=== PATIENT | male | born 1985 | race Caucasian/White ===

== ENCOUNTER 2016-05-22 12:10 | Emergency (ER) | payer OTHER ==
[~2016-05-22] VITALS: Ht 187.9 cm; Wt 74.8 kg
[~2016-05-22 12:10] MED LIST: AMOXICILLIN500 MG PO; AUGMENTIN 875875 MG PO; CATAFLAM50 MG PO; CLARITIN10 MG PO; FLEXERIL10 MG PO; HUMALOG 751 UNIT/0.0 SC; HYDROCODONE BIT1 T11 PO; IMODIUM A-D2 M2 PO; LANTUS100 U/ML SC; LOMOTIL 0.025 M1 TA1 PO; MOTRIN800 MG PO; Motrin,Rufen800 MG PO; NORCO 5-325 TA1 EACH PO; NORFLEX100 MG PO; NOVOLIN R100 U/ML SC; PEN-VK500 MG PO; PERCOCET 325 MG1 TA2 PO; PHENERGAN W/ DE30 ML PO; PREDNICOT10 MG PO; PREDNICOT20 MG PO; PREDNISONE10 MG PO; PROAIR HFA0.09 MG/AC INH; PROAIR HFA8.5 GM IH; ROBITUSSIN AC 110 ML PO; ROBITUSSIN DM 105 ML PO; TESSALON PERLE200 MG PO; VENTOLIN H0.09 MG/AC INH; VIBRAMYCIN100 MG PO; VICODIN 5/500 505 MG PO; ZITHROMAX Z PA250 MG PO; ZOFRAN ODT4 MG SL; ZOFRAN4 MG PO; ZYRTEC10 MG PO
[2016-05-22] MEDS ORDERED: IBU800 M1 PO (13:58)
== END 2016-05-22 14:00 | disposition home or self-care (01) ==
LOC: ED 12:10
DX: S83.91XA Sprain of unspecified site of right knee, initial encounter (principal); F17.200 Nicotine dependence, unspecified, uncomplicated; Z79.4 Long term (current) use of insulin; X58.XXXA Exposure to other specified factors, initial encounter; Y93.89 Activity, other specified; Y92.830 Public park as the place of occurrence of the external cause; Y99.9 Unspecified external cause status

== ENCOUNTER 2016-06-07 12:08 | Emergency (ER) | payer OTHER ==
[~2016-06-07] VITALS: Ht 187.9 cm; Wt 74.8 kg
--- NOTE | ~2016-06-07 | EKG ---
[place], [place] ELECTROCARDIOGRAM REPORT NAME: RENETTA HENNING UNIT #: [id number] ROOM: DOCTOR: BEBE WARNER MD BIRTHDATE: [birth year] DOS: 06/07/2016 TIME: 1233 hours. FINDINGS: 1. Sinus rhythm at a rate of 92. 2. Early repolarization changes. 3. Normal electrocardiogram. BEBE WARNER MD CM:EKGRPT:ELECTROCARDIOGRAM REPORT [id number] BEBE WARNER MD
[~2016-06-07 12:08] MED LIST changes: +IBU800 M1 PO
[2016-06-07 12:52] LABS: HEMOGLOBIN 15.3 g/dl (14.0-18.0); MEAN CELL VOLUME 89.2 fl (80.0-94.0); MEAN CORPUSCULAR HGB CONC 34.8 g/dl (33.0-37.0); PLATELET COUNT AUTOMATED 218 10*3/uL (130-400); RED BLOOD COUNT 4.93 10*6/uL (4.50-5.90); RED CELL DISTRI WIDTH 12.9 % (0-14.5); WHITE BLOOD COUNT 17.9 10*3/uL (4.8-10.8)
[2016-06-07 13:11] LABS: ALBUMIN 3.7 gm/dl (3.1-4.5); BUN 13 mg/dl (7-24); CARBON DIOXIDE 21 mmol/L (21-32); CHLORIDE 103 mmol/L (98-107); EST GLOM FILT AFRICAN AMERICAN > 60 ml/min; GLUCOSE 385 mg/dL (65-99); LYMPHOCYTE # 0.4 10*3/uL (1.3-4.4); MONOCYTE # 0.2 10*3/uL (0.1-1.0); NEUTROPHIL # 17.4 10*3/uL (2.3-7.9); NEUTROPHILS 97 % (47-73); PLATELET SUFFICIENCY NORMAL (NORMAL); POTASSIUM 4.3 mmol/L (3.5-5.1); SGOT/AST 13 IU/L (3-35); SGPT/ALT 20 U/L (12-78); SODIUM 137 mmol/L (136-145); TOTAL CELLS COUNTED 100 #CELLS
[2016-06-07 13:15] LABS: ALKALINE PHOSPHATASE 141 U/L (45-117); BILIRUBIN, TOTAL 0.6 mg/dl (0.2-1.0)
[2016-06-07 13:19] LABS: TROPONIN I < 0.015 ng/ml (<0.045)
== END 2016-06-07 15:20 | disposition left against medical advice (07) ==
LOC: ED 12:08
PROVIDERS: Emergency Medicine
DX: R10.13 Epigastric pain (principal); E10.9 Type 1 diabetes mellitus without complications; Z90.89 Acquired absence of other organs; Z79.4 Long term (current) use of insulin

== ENCOUNTER → 2016-06-21 | Outpatient (CLI) | payer OTHER | END | disposition home or self-care (01) | LOC: RAD 14:30 | DX: S62.306D Unspecified fracture of fifth metacarpal bone, right hand, subsequent encounter for fracture with routine healing (principal); M25.841 Other specified joint disorders, right hand; X58.XXXD Exposure to other specified factors, subsequent encounter ==

== ENCOUNTER 2016-07-22 20:37 | Emergency (ER) | payer OTHER ==
[~2016-07-22] VITALS: Wt 74.8 kg
[2016-07-22] MEDS ORDERED: HYDROCODONE BIT1 T11 PO (21:36)
[2016-07-22] MEDS ORDERED: Motrin,Rufen800 MG PO (21:36)
== END 2016-07-22 21:30 | disposition home or self-care (01) ==
LOC: ED 20:37
DX: S62.91XA Unspecified fracture of right hand, initial encounter for closed fracture (principal); F17.200 Nicotine dependence, unspecified, uncomplicated; Z79.4 Long term (current) use of insulin; W22.03XA Walked into furniture, initial encounter; Y93.89 Activity, other specified; Y92.9 Unspecified place or not applicable; Y99.9 Unspecified external cause status

== ENCOUNTER 2016-11-01 20:30 | Emergency (ER) | payer OTHER ==
[~2016-11-01] VITALS: Ht 187.9 cm; Wt 72.6 kg
[2016-11-01] MEDS ORDERED: VIBRAMYCIN100 MG PO (20:57)
[2016-11-01] MEDS ORDERED: ATARAX,VISTARIL50 MG PO (20:57)
== END 2016-11-01 22:15 | disposition home or self-care (01) ==
LOC: ED 20:30
DX: S50.861A Insect bite (nonvenomous) of right forearm, initial encounter (principal); L08.9 Local infection of the skin and subcutaneous tissue, unspecified; F17.200 Nicotine dependence, unspecified, uncomplicated; Z90.89 Acquired absence of other organs; W57.XXXA Bitten or stung by nonvenomous insect and other nonvenomous arthropods, initial encounter; Y93.89 Activity, other specified; Y92.89 Other specified places as the place of occurrence of the external cause; Y99.9 Unspecified external cause status

== ENCOUNTER 2017-06-08 11:51 | Emergency (ER) | payer OTHER ==
[~2017-06-08] VITALS: Ht 187.9 cm; Wt 72.6 kg
[~2017-06-08 11:51] MED LIST changes: +ATARAX,VISTARIL50 MG PO
[2017-06-08] MEDS ORDERED: KEFLEX500 M1 PO (11:58)
[2017-06-08] MEDS ORDERED: SEPTDS PO (11:58)
[2017-06-08] MEDS ORDERED: Bactroban Oint22 GM T (11:58)
== END 2017-06-08 12:15 | disposition home or self-care (01) ==
LOC: ED 11:51
DX: L02.511 Cutaneous abscess of right hand (principal); F17.200 Nicotine dependence, unspecified, uncomplicated; E11.9 Type 2 diabetes mellitus without complications; Z90.89 Acquired absence of other organs; Z79.899 Other long term (current) drug therapy; Z79.4 Long term (current) use of insulin

== ENCOUNTER 2018-01-01 11:55 | Emergency (ER) | payer OTHER ==
[~2018-01-01] VITALS: Ht 589.2 cm; Wt 72.6 kg
--- NOTE | ~2018-01-01 | EKG ---
[place], [place] ELECTROCARDIOGRAM REPORT NAME: RENETTA HENNING UNIT #: [id number] ROOM: DOCTOR: FLACA DRAFT REPORT BIRTHDATE: [birth year] [facility] Test Date: 2018-01-01 Test Time: 11:59:38 Pat Name: RENETTA HENNING Department: ER Room: Gender: Voice Writing Reporter: : 1985 Requested By: KATHERINE DRAKE Order Number: [id number] Reading MD: Cale Back MD Measurements Intervals [place] Rate: 133 P: 70 WV: 107 QRS: 64 QRSD: 92 T: 48 QT: 334 QTc: 497 Interpretive Statements Sinus tachycardia Prolonged QT interval Artifact in lead(s) II,III,aVF Electronically Signed On 01-03-2018 6:31:13 PST by Cale Back MD CM:EKGRPT:ELECTROCARDIOGRAM REPORT [id number] KATHERINE MARTÍNEZ DRAFT REPORT KATHERINE DRAKE DO
[~2018-01-01 11:55] MED LIST changes: +Bactroban Oint22 GM T; +KEFLEX500 M1 PO; +SEPTDS PO
[2018-01-01 12:17] LABS: BASO # 0.1 10*3/uL (0.0-0.1); BASO % 0.4 % (0.0-1.0); EOS % 0.2 % (1.0-4.0); HEMOGLOBIN 13.9 g/dl (14.0-18.0); LYMPH # 1.8 10*3/uL (1.3-4.4); LYMPH % 9.4 % (27.0-41.0); MEAN CELL VOLUME 89.5 fl (80.0-94.0); MEAN CORPUSCULAR HGB 31.1 pg (27.0-31.0); MEAN CORPUSCULAR HGB CONC 34.8 g/dl (33.0-37.0); MEAN PLATELET VOLUME 10.7 fl (9.6-12.3); MONO % 5.2 % (3.0-9.0); NEUT # 16.2 10*3/uL (2.3-7.9); NEUT % 84.4 % (47.0-73.0); PLATELET COUNT AUTOMATED 287 10*3/uL (130-400); RED BLOOD COUNT 4.47 10*6/uL (4.50-5.90); RED CELL DISTRI WIDTH 12.3 % (0-14.5); WHITE BLOOD COUNT 19.2 10*3/uL (4.8-10.8)
[2018-01-01 12:38] LABS: ALBUMIN 3.8 gm/dl (3.1-4.5); ALKALINE PHOSPHATASE 132 U/L (45-117); BUN 14 mg/dl (7-24); CHLORIDE 103 mmol/L (98-107); CREATININE 1.19 mg/dL (0.70-1.30); LIPASE 51 U/L (73-393); POTASSIUM 3.8 mmol/L (3.5-5.1); SGOT/AST 50 IU/L (3-35); SGPT/ALT 41 U/L (12-78); SODIUM 137 mmol/L (136-145); TOTAL PROTEIN 7.3 gm/dL (6.4-8.2)
[2018-01-01 12:40] LABS: TROPONIN I < 0.015 ng/ml (<0.045)
== END 2018-01-01 13:30 | disposition short-term general hospital (02) ==
LOC: ED 11:55
PROVIDERS: Emergency Medicine
DX: S21.112A Laceration without foreign body of left front wall of thorax without penetration into thoracic cavity, initial encounter (principal); S31.119A Laceration without foreign body of abdominal wall, unspecified quadrant without penetration into peritoneal cavity, initial encounter; S27.0XXA Traumatic pneumothorax, initial encounter; J96.00 Acute respiratory failure, unspecified whether with hypoxia or hypercapnia; Z79.2 Long term (current) use of antibiotics; X78.1XXA Intentional self-harm by knife, initial encounter; Y93.89 Activity, other specified; Y92.89 Other specified places as the place of occurrence of the external cause; Y99.8 Other external cause status

== ENCOUNTER 2018-08-16 08:46 | Inpatient (IN) | payer OTHER ==
[~2018-08-16] VITALS: Ht 187.9 cm; Wt 71.0 kg
[2018-08-16] VITALS (7 sets, daily range): BP systolic 106–171; BP diastolic 60–90
--- NOTE | ~2018-08-16 | EKG ---
[place], [place] ELECTROCARDIOGRAM REPORT NAME: RENETTA HENNING UNIT #: [id number] ROOM: [facility] DOCTOR: FLACA DRAFT REPORT BIRTHDATE: [birth year] [facility] Test Date: 2018-08-16 Test Time: 09:21:01 Pat Name: RENETTA HENNING Department: Room: [facility] Gender: M Sexologist: : 1985 Requested By: MADDIE ZUNIGA Order Number: [id number] Reading MD: Aletha Oconnor MD Measurements Intervals [place] Rate: 116 P: 74 DC: 125 QRS: 59 QRSD: 105 T: 43 QT: 344 QTc: 478 Interpretive Statements Sinus tachycardia Right atrial enlargement Borderline prolonged QT interval Compared to ECG 01/01/2018 11:59:38 Atrial abnormality now present Electronically Signed On 08-16-2018 9:13:17 PDT by Aletha Oconnor MD CM:EKGRPT:ELECTROCARDIOGRAM REPORT MADDIE THAYER DRAFT REPORT MADDIE ZUNIGA MD
--- NOTE | 2018-08-16 08:58 | NUR ---
PT WITH HX DKA ARRIVES TACHYPNEIC, TACHYCARDIC AND NAUSEATED AFTER INDULGING IN METHAMPHETAMINE AND OTHER DRUG ABUSES YESTERDAY. HE IS ALERT AND ORIENTED.
--- NOTE | 2018-08-16 09:10 | NUR ---
PT DENIES NAUSEA OR ANY OTHER COMPLAINTS EXCEPT RAPID BREATHING AND DRY MOUTH. WATER PROVIDED AND HAS NOT VOMITED IT.
[2018-08-16 09:19] LABS: HEMATOCRIT 52.2 % (42.0-52.0); HEMOGLOBIN 16.7 g/dl (14.0-18.0); MEAN CELL VOLUME 93.5 fl (80.0-94.0); MEAN CORPUSCULAR HGB 29.9 pg (27.0-31.0); MEAN PLATELET VOLUME 11.3 fl (9.6-12.3); PLATELET COUNT AUTOMATED 403 10*3/uL (130-400); RED BLOOD COUNT 5.58 10*6/uL (4.50-5.90); RED CELL DISTRI WIDTH 12.7 % (0-14.5); WHITE BLOOD COUNT 29.5 10*3/uL (4.8-10.8)
[2018-08-16 09:35] LABS: ALBUMIN 4.4 gm/dl (3.1-4.5); ALKALINE PHOSPHATASE 226 U/L (45-117); BUN 32 mg/dl (7-24); CHLORIDE 92 mmol/L (98-107); CREATININE 2.07 mg/dL (0.70-1.30); LIPASE 22 U/L (73-393); SGOT/AST 38 IU/L (3-35); SGPT/ALT 39 U/L (12-78); SODIUM 133 mmol/L (136-145); TOTAL PROTEIN 8.7 gm/dL (6.4-8.2)
[2018-08-16 09:42] LABS: ETHYL ALCOHOL < 3.0 mg/dl (<3); TROPONIN I < 0.015 ng/ml (<0.045)
--- NOTE | 2018-08-16 09:44 | NUR ---
PT UNABLE TO PROVIDE URINE SPECIMENT AT THIS TIME.
[2018-08-16 09:49] LABS: PLATELET SUFFICIENCY HIGH (NORMAL); TOTAL CELLS COUNTED 100 #CELLS; VACUOLATION OF NEUTROPHILS SLIGHT
[2018-08-16 09:50] LABS: POTASSIUM 6.3 mmol/L (3.5-5.1)
[2018-08-16 09:54] LABS: ACT PARTIAL THROMBO TIME 24.4 SECONDS (20.0-32.1); INTERNATIONAL NORM RATIO 0.9 (2.0-3.5)
--- NOTE | 2018-08-16 09:55 | NUR ---
RESP DOING ABG, UNABLE TO TRANSPORT TO ICU # AT THIS TIME.
--- NOTE | 2018-08-16 10:07 | NUR ---
TRANSPORT TO ICU #3
--- NOTE | 2018-08-16 10:15 | NUR ---
A 32yr old male, admitted to ICCU, under the services of NAYE Morrow DO with a diagnosis of DKA. Chief complaint is vomiting at home, rapid breathing. Patient arrived via stretcher from ER. Monitor applied. Initial assessment completed. Vital signs taken and recorded. See assessment for past medical history, medications and allergies. Patient and/or family oriented to unit. [facility] ICCU visitation policy reviewed. Clothing/patient valuable form completed. IV fluids wide open x 2 liters at this time. Kussmaul breathing. Tachycardic. Nausea and dry heaves on admission. SARIKA LOBATO
[2018-08-16 10:18] LABS: ABG HCO3 2.5 mmol/l (22-26); ABG O2 SATURATION 97.9 % (95-97)
--- NOTE | 2018-08-16 10:20 | NUR ---
DR. TOBAR NOTIFIED OF CRITICAL LAB RESULTS AND ABG VALUES. ORDERS RECEIVED.
[2018-08-16 10:24] LABS: ABG BASE EXCESS -29.3 mmol/L (-2.0-2.0)
[2018-08-16 10:26] LABS: ARTERIAL BLOOD GAS PCO2 9.3 mmHg (35-45); ARTERIAL BLOOD GAS PH 7.052 (7.35-7.45)
--- NOTE | 2018-08-16 10:28 | NUR ---
Dr Paiz notified of critical pH of 7.052, pCO2 9.3.
--- NOTE | 2018-08-16 11:00 | NUR ---
INSULIN GTT INITIATED AT 7 UNITS/HR.
--- NOTE | 2018-08-16 11:50 | NUR ---
DR. NORRIS IN TO SEE PATIENT AND DISCUSS PLAN OF CARE, ORDERS RECEIVED.
[2018-08-16 12:07] LABS: URINE AMPHETAMINES > 1000 (1000ng/ml); URINE BARBITURATES < 200 (200ng/ml); URINE BENZODIAZEPINES < 200 (200ng/ml); URINE CANNABINOIDS (THC) > 50 (50ng/ml); URINE COCAINE < 300 (300ng/ml); URINE METHADONE < 300 (300ng/ml); URINE OPIATES < 300 (300ng/ml)
[2018-08-16 12:13] LABS: URINE PHENCYCLIDINE < 25 (25ng/ml)
[2018-08-16 14:06] LABS: BUN 29 mg/dl (7-24); CHLORIDE 103 mmol/L (98-107); CREATININE 1.42 mg/dL (0.70-1.30); SODIUM 136 mmol/L (136-145)
[2018-08-16 14:07] LABS: POTASSIUM 5.2 mmol/L (3.5-5.1)
--- NOTE | 2018-08-16 14:20 | NUR ---
DR. TOBAR NOTIFIED OF CRITICAL CO2 AND OF UPDATED LABS. ORDERS RECEIVED.
--- NOTE | 2018-08-16 17:11 | NUR ---
PATIENT TITRATED TO 6 UNIT PER INSULIN DRIP PROTOCOL. FLUIDS SWITCHED FROM NS TO D5W 1/2 NS W/20KCL.
[2018-08-16 18:29] LABS: BUN 24 mg/dl (7-24); CHLORIDE 109 mmol/L (98-107); CREATININE 1.37 mg/dL (0.70-1.30); POTASSIUM 4.7 mmol/L (3.5-5.1); SODIUM 140 mmol/L (136-145)
--- NOTE | 2018-08-16 18:38 | NUR ---
DR. TOBAR UPDATED ON BMP RESULTS. ORDERS RECEIVED.
--- NOTE | 2018-08-16 20:10 | NUR ---
PATIENT RESTING COMFORTABLY IN HIS BED AT THIS TIME. PATIENT IS HARD TO AROUSE. OPENS EYES WITH TACTILE STIMULI AND IMMEDIATELY CLOSES THEM AGAIN. PATIENT TOLERATED BLOOD GLUCOSE CHECK AND VITAL SIGNS, WELL ASSESSMENT. NO S/S OF DISTRESS CURRENTLY. PATIENT'S BLOOD GLUCOSE IS 110 OF 1999. DECREASED INSULIN DRIP TO 4 UNITS/HR PER PROTOCOL. FLOWING INTO IV IN PATIENT'S RIGHT ARM. PATIENT'S VITALS ARE STABLE. CALL LIGHT IS WITHIN REACH.
--- NOTE | 2018-08-16 20:13 | NUR ---
CALLED PHARMACY TO ENSURE WE HAVE A NEW BAG OF INSULIN FOR THE INSULIN DRIP SENT UP TO THE UNIT PRIOR TO PHARMACY'S CLOSURE TONIGHT. HELLER NOTIFIED.
[2018-08-16 22:12] LABS: VENOUS BLOOD GAS O2 SAT 87.9 % (40-85); VENOUS PH 7.232 (7.32-7.43)
--- NOTE | 2018-08-16 23:06 | NUR ---
PATIENT RESTING ON HIS BACK IN BED. NO S/S OF DISTRESS. CHECKED BLOOD GLUCOSE AND RECEIVED A RESULT OF 88. REDUCED INSULIN TO 2UNITS PER HOUR PER PROTOCOL.
[2018-08-16 23:23] LABS: BUN 22 mg/dl (7-24); CHLORIDE 106 mmol/L (98-107); CREATININE 1.31 mg/dL (0.70-1.30); POTASSIUM 4.6 mmol/L (3.5-5.1); SODIUM 138 mmol/L (136-145)
[2018-08-17] VITALS (10 sets, daily range): BP systolic 78–131; BP diastolic 50–81
--- NOTE | 2018-08-17 00:08 | NUR ---
PATIENT RESTING IN BED, CURLED UP. NO S/S OF DISTRESS. BLOOD GLUCOSE CHECKED. REDUCED INSULIN DRIP TO 1UNIT/HR PER PROTOCOL FOR BGM OF 81.
--- NOTE | 2018-08-17 01:15 | NUR ---
CALLED DR GARCIA TO LET HIM KNOW THAT THE PATIENT'S BGM WAS 72, AND THE IV INSULIN HAS BEEN DECREASED TO 0.5U/HR. DOCTOR RADHA ORDERED STAT BMP TO CHECK GAP, AND WILL LOOK INTO WHAT WE HAVE TO ORDER FAR DEXTOSE DUE TO A D50W SHORTAGE IN PHARMACY. NO D50W ORDERED FOR PATIENT CURRENTLY.
[2018-08-17 01:53] LABS: BUN 19 mg/dl (7-24); CHLORIDE 109 mmol/L (98-107); CREATININE 1.17 mg/dL (0.70-1.30); POTASSIUM 4.2 mmol/L (3.5-5.1); SODIUM 140 mmol/L (136-145)
--- NOTE | 2018-08-17 02:21 | NUR ---
PATIENT'S INSULIN DRIP MAINTAINED. OBTAINED A D50W SYRINGE IN CASE THE PATIENT'S GLUCOSE CONTINUES TO DROP. ON HAND. PATIENT DISPLAYS NO S/S OF DISTRESS. MORE AROUSABLE. ANSWERS WITH MURMURS AND YES/NO ANSWERS AT TIMES. CALL LIGHT WITHIN REACH.
--- NOTE | 2018-08-17 04:21 | NUR ---
PATIENT IS AWAKE, ALERT, AND ORIENTED. VOIDED 1000CC INTO URINAL. DENIES ANY COMPLAINTS OF DISCOMFORT. STATES HE FEELS BETTER. PATIENT'S VITALS REMAIN STABLE. REMAINS ON 0.5UNITS/HR OF INSULIN. NO CHANGES MADE TO INFUSIONS. CALL LIGHT REINFORCED AND PLACED WITHIN REACH. PATIENT IS EATING FRUIT AT BEDSIDE.
--- NOTE | 2018-08-17 05:07 | NUR ---
PATIENTS BGM 150. INCREASED INSULIN DRIP TO 1UNIT/HR PER PROTOCOL. PATIENT RESTING IN BED. TOLERANT OF FINGER STICK. NO S/S OF DISTRESS. CALL LIGHT WITHIN REACH.
[2018-08-17 06:41] LABS: BASO # 0.1 10*3/uL (0.0-0.1); BASO % 0.3 % (0.0-1.0); EOS # 0.1 10*3/uL (0.0-0.4); EOS % 0.3 % (1.0-4.0); LYMPH # 2.6 10*3/uL (1.3-4.4); LYMPH % 13.2 % (27.0-41.0); MEAN CELL VOLUME 90.8 fl (80.0-94.0); MEAN CORPUSCULAR HGB 29.6 pg (27.0-31.0); MEAN CORPUSCULAR HGB CONC 32.6 g/dl (33.0-37.0); MEAN PLATELET VOLUME 10.7 fl (9.6-12.3); MONO # 1.2 10*3/uL (0.1-1.0); NEUT # 15.6 10*3/uL (2.3-7.9); NEUT % 79.6 % (47.0-73.0); PLATELET COUNT AUTOMATED 323 10*3/uL (130-400); RED BLOOD COUNT 4.77 10*6/uL (4.50-5.90); RED CELL DISTRI WIDTH 12.7 % (0-14.5); WHITE BLOOD COUNT 19.6 10*3/uL (4.8-10.8)
[2018-08-17 06:55] LABS: ALBUMIN 3.2 gm/dl (3.1-4.5); ALKALINE PHOSPHATASE 140 U/L (45-117); BUN 16 mg/dl (7-24); CHLORIDE 108 mmol/L (98-107); CHOLESTEROL 126 mg/dL (<200); CREATININE 1.16 mg/dL (0.70-1.30); HDL CHOLESTEROL 58 mg/dl (40-60); LDL CHOLESTEROL 47 mg/dL (9-159); PHOSPHOROUS 1.7 mg/dL (2.5-4.9); POTASSIUM 4.2 mmol/L (3.5-5.1); SGOT/AST 23 IU/L (3-35); SGPT/ALT 27 U/L (12-78); SODIUM 139 mmol/L (136-145); TOTAL PROTEIN 6.6 gm/dL (6.4-8.2); TRIGLYCERIDES 106 mg/dl (<150); VLDL CHOLESTEROL 21 mg/dL (6-40)
[2018-08-17 06:56] LABS: FREE T4 1.08 ng/dl (0.76-1.46)
[2018-08-17 06:57] LABS: HEMOGLOBIN 14.1 g/dl (14.0-18.0)
--- NOTE | 2018-08-17 06:57 | NUR ---
PATIENT'S INSULIN DRIP INCREASED TO 3UNITS/HR PER PROTOCOL DUE TO BGM OF 167.
[2018-08-17 06:58] LABS: HEMATOCRIT 43.3 % (42.0-52.0)
[2018-08-17 07:01] LABS: THYROID STIM HORMONE (HS) 0.271 uIU/ml (0.358-4.75)
--- NOTE | 2018-08-17 07:12 | NUR ---
24 HR chart check completed.
[2018-08-17 07:58] LABS: VITAMIN D, 25-HYDROXY 10.4 ng/mL (30-100)
--- NOTE | 2018-08-17 11:19 | NUR ---
BLOOD SUGAR 72. PATIENT ATE ASIF AND STRAWBERRY SHERBET PRIOR TO CAPILLARY BLOOD SUGAR CHECK. INSULIN GTT DECREASED TO 1 UNIT/HR. DR. KATZ NOTIFIED.
--- NOTE | 2018-08-17 11:33 | NUR ---
INSULIN GTT AND D5 OFF AT THIS TIME PER DR. NORRIS'S INSTRUCTION.
--- NOTE | 2018-08-17 12:47 | NUR ---
DR. KATZ NOTIFIED OF BLOOD SUGAR.
--- NOTE | 2018-08-17 15:36 | NUR ---
DR. KATZ UPDATED ON HYPOTENSION. BP 78/50.
[2018-08-17 19:23] LABS: BASO # 0.1 10*3/uL (0.0-0.1); BASO % 0.6 % (0.0-1.0); EOS # 0.1 10*3/uL (0.0-0.4); EOS % 0.7 % (1.0-4.0); HEMATOCRIT 44.4 % (42.0-52.0); HEMOGLOBIN 14.3 g/dl (14.0-18.0); LYMPH # 2.4 10*3/uL (1.3-4.4); LYMPH % 22.5 % (27.0-41.0); MEAN CELL VOLUME 93.5 fl (80.0-94.0); MEAN CORPUSCULAR HGB 30.1 pg (27.0-31.0); MEAN CORPUSCULAR HGB CONC 32.2 g/dl (33.0-37.0); MEAN PLATELET VOLUME 10.7 fl (9.6-12.3); MONO # 0.8 10*3/uL (0.1-1.0); MONO % 7.4 % (3.0-9.0); NEUT # 7.3 10*3/uL (2.3-7.9); NEUT % 68.4 % (47.0-73.0); PLATELET COUNT AUTOMATED 245 10*3/uL (130-400); RED BLOOD COUNT 4.75 10*6/uL (4.50-5.90); RED CELL DISTRI WIDTH 13.1 % (0-14.5); WHITE BLOOD COUNT 10.6 10*3/uL (4.8-10.8)
[2018-08-17 19:39] LABS: ALKALINE PHOSPHATASE 124 U/L (45-117); BUN 11 mg/dl (7-24); CHLORIDE 111 mmol/L (98-107); CREATININE 0.88 mg/dL (0.70-1.30); PHOSPHOROUS 1.9 mg/dL (2.5-4.9); POTASSIUM 3.7 mmol/L (3.5-5.1); SGOT/AST 24 IU/L (3-35); SGPT/ALT 24 U/L (12-78); SODIUM 142 mmol/L (136-145); TOTAL PROTEIN 5.9 gm/dL (6.4-8.2)
--- NOTE | 2018-08-17 19:52 | NUR ---
ASSUMED CARE OF PATIENT AT THIS TIME. NO S/S OF DISTRESS NOTED UPON ASSESSMENT. PATIENT'S MANUAL BP AT THIS TIME IS 100/50 IN THE LEFT ARM. DENIES ANY DISCOMFORT. VITALS ALL STABLE. AFEBRILE. RESP EASY, 98% ON RA. HRR. CALL LIGHT IS WITHIN REACH.
--- NOTE | 2018-08-17 20:04 | NUR ---
DR TOBAR UPDATED ON PATIENT'S BLOOD PRESSURE AND THAT THE LABS HAVE RESULTED.
[2018-08-18] VITALS (7 sets, daily range): BP systolic 106–118; BP diastolic 53–91
--- NOTE | 2018-08-18 00:34 | NUR ---
CALLED DEENA YOUNG, ACTIVITY MANAGER, AND SHE STATES THAT SHE DOES NOT HAVE ACCESS TO POTASSIUM PHOSPHATE AT NIGHT SO THIS SECOND INFUSION WILL HAVE TO WAIT UNTIL PHARMACY HAS RETURNED IN THE MORNING.
--- NOTE | 2018-08-18 01:00 | NUR ---
PATIENT STILL HAS POTASSIUM PHOSPHATE RUNNING AT THIS TIME. WILL NOT NEED OTHER DOSE UNTIL LATER IN MORNING.
--- NOTE | 2018-08-18 01:14 | NUR ---
DR TOBAR IS IN AGREEMENT WITH US WAITING UNTIL MORNING TO BEGIN SECOND BAG OF POTASSIUM PHOSPHATE ON PATIENT.
--- NOTE | 2018-08-18 02:21 | NUR ---
CHECKED PATIENT FOR S/S OF HYPOGLYCEMIA. NO S/S NOTED. PATIENT APPEARS TO BE COMFORTABLE. PATIENT AWAKE, UP TO USE URINAL. REQUESTING ORAL FLUIDS. BP TAKEN. WNL. ENCOURAGED TO GET CLEANED UP. BASIN AND BATHING MATERIALS BROUGHT TO ROOM AND CALL LIGHT REEXPLAINED AND PLACED WITH PATIENT.
--- NOTE | 2018-08-18 04:22 | NUR ---
PATIENT RESTING IN BED AT THIS TIME. NO S/S OF DISTRESS. DENIES ANY C/O DISCOMFORT OR NEEDS. PATIENT STATES HE FEELS BETTER THAN HE DID. NORMAL SALINE INFUSING. CALL LIGHT IN REACH.
--- NOTE | 2018-08-18 06:18 | NUR ---
PATIENT IS RESTING IN BED, AWAITING TIME TO ORDER BREAKFAST. BGM OBTAINED. TOLERATED WELL. NO S/S OF DISTRESS. CALL LIGHT WITHIN REACH.
[2018-08-18 06:28] LABS: ALBUMIN 2.8 gm/dl (3.1-4.5); ALKALINE PHOSPHATASE 119 U/L (45-117); BUN 7 mg/dl (7-24); CHLORIDE 108 mmol/L (98-107); PHOSPHOROUS 2.3 mg/dL (2.5-4.9); POTASSIUM 3.8 mmol/L (3.5-5.1); SGOT/AST 24 IU/L (3-35); SGPT/ALT 27 U/L (12-78); SODIUM 141 mmol/L (136-145); TOTAL PROTEIN 5.8 gm/dL (6.4-8.2)
[2018-08-18 06:37] LABS: BASO % 0.3 % (0.0-1.0); EOS # 0.1 10*3/uL (0.0-0.4); EOS % 0.9 % (1.0-4.0); HEMATOCRIT 42.9 % (42.0-52.0); HEMOGLOBIN 14.4 g/dl (14.0-18.0); LYMPH # 2.5 10*3/uL (1.3-4.4); LYMPH % 27.7 % (27.0-41.0); MEAN CORPUSCULAR HGB 29.8 pg (27.0-31.0); MEAN CORPUSCULAR HGB CONC 33.6 g/dl (33.0-37.0); MEAN PLATELET VOLUME 10.9 fl (9.6-12.3); MONO # 0.7 10*3/uL (0.1-1.0); MONO % 8.2 % (3.0-9.0); NEUT # 5.5 10*3/uL (2.3-7.9); NEUT % 62.4 % (47.0-73.0); PLATELET COUNT AUTOMATED 271 10*3/uL (130-400); RED BLOOD COUNT 4.84 10*6/uL (4.50-5.90); RED CELL DISTRI WIDTH 12.9 % (0-14.5); WHITE BLOOD COUNT 8.9 10*3/uL (4.8-10.8)
[2018-08-18 06:41] LABS: MEAN CELL VOLUME 88.6 fl (80.0-94.0)
--- NOTE | 2018-08-18 07:25 | NUR ---
Shift chart check completed.24 HR chart check completed.
--- NOTE | 2018-08-18 07:37 | NUR ---
ON ASSESSMENT PATIENT IS ALERT, ORIENTED, NO COMPLAINTS, ANXIOUS TO GO HOME. ORTHOSTATIC BP DONE DUE TO HYPOTENSION YESTERDAY. HIS BP WENT FROM 116 SYSTOLIC SITTING TO 111 SYSTOLIC STANDING. HR WENT FROM 90 TO 125 AND HE HAD "SOME" DIZZINESS THAT CLEARED AFTER HE WAS STANDING AWHILE.
--- NOTE | 2018-08-18 12:26 | NUR ---
PT REMOVED FROM SHEEP CLIPPER PER ORDER.
--- NOTE | 2018-08-18 12:26 | NUR ---
SHIFT DIRECTOR, KEN BARRERA, NOTIFIED PT STEPPED DOWN TO MED SURG STATUS.
--- NOTE | 2018-08-18 14:43 | NUR ---
PT AMBULATORY IN ICCU, TO SHOWER. STATES "I FEEL SO MUCH BETTER SINCE THAT". HE WAS INSTRUCTED THAT HE COULD BE AMBULATORY ON THE FLOOR AND TO THE LOBBY BUT NOT PERMITTED TO LEAVE THE FLOOR. PT STATES HE UNDERSTANDS.
--- NOTE | 2018-08-18 19:45 | NUR ---
AMBULATING HALLWAY WITH GIRLFRIEND. NO DISTRESS NOTED. NO VOICED COMPLAINTS
--- NOTE | 2018-08-18 20:10 | NUR ---
24 HR chart check completed.
--- NOTE | 2018-08-18 21:10 | NUR ---
GIRLFRIEND REMAINS IN ROOM DESPITE ANNOUNCEMENT THAT VISITING HOURS ARE OVER. VISITING HOUR POLICY REVIEWED AND GIRLFRIEND ASKED TO LEAVE. PATIENT ESCORTED GIRLFRIEND TO ELEVATOR AND THEN RETURNED TO ROOM WITHOUT INCIDENT
--- NOTE | 2018-08-18 21:30 | NUR ---
RESTING IN BED WITH NO DISTRESS NOTED. RESPIRATIONS EASY. LUNGS DIMINISHED, CLEAR. PULSE OX 98% RA. TEDS PRESENT AT BEDSIDE BUT PATIENT DECLINES TO WEAR. CALL LIGHT WITHIN REACH. NO VOICED COMPLAINTS
[2018-08-19] VITALS: BP 100/62; BP 90/55
--- NOTE | 2018-08-19 | NUR ---
SLEEPING. NO DISTRESS NOTED. RESPIRATIONS EASY. VSS. CALL LIGHT WITHIN REACH
--- NOTE | 2018-08-19 06:00 | NUR ---
slept throughout night with no distress noted. respirations easy. bsg 83, asymptomatic. provided with juice x 2 and milk. call light within reach. no voiced complaints this shift
[2018-08-19 06:22] LABS: BASO # 0.1 10*3/uL (0.0-0.1); BASO % 0.6 % (0.0-1.0); EOS % 0.5 % (1.0-4.0); HEMOGLOBIN 14.5 g/dl (14.0-18.0); LYMPH # 2.1 10*3/uL (1.3-4.4); LYMPH % 26.9 % (27.0-41.0); MEAN CELL VOLUME 89.4 fl (80.0-94.0); MEAN CORPUSCULAR HGB 30.1 pg (27.0-31.0); MEAN CORPUSCULAR HGB CONC 33.7 g/dl (33.0-37.0); MEAN PLATELET VOLUME 10.8 fl (9.6-12.3); MONO # 0.9 10*3/uL (0.1-1.0); MONO % 10.7 % (3.0-9.0); NEUT # 4.8 10*3/uL (2.3-7.9); NEUT % 60.8 % (47.0-73.0); PLATELET COUNT AUTOMATED 261 10*3/uL (130-400); RED BLOOD COUNT 4.81 10*6/uL (4.50-5.90); RED CELL DISTRI WIDTH 12.6 % (0-14.5); WHITE BLOOD COUNT 7.9 10*3/uL (4.8-10.8)
[2018-08-19 07:01] LABS: BUN 6 mg/dl (7-24); CHLORIDE 104 mmol/L (98-107); CREATININE 0.76 mg/dL (0.70-1.30); PHOSPHOROUS 3.1 mg/dL (2.5-4.9); POTASSIUM 3.5 mmol/L (3.5-5.1); SGOT/AST 31 IU/L (3-35); SGPT/ALT 33 U/L (12-78); SODIUM 144 mmol/L (136-145)
[2018-08-19 07:02] LABS: ALKALINE PHOSPHATASE 131 U/L (45-117); TOTAL PROTEIN 6.1 gm/dL (6.4-8.2)
[2018-08-19 08:00] VITALS: BP 110/69
--- NOTE | 2018-08-19 10:21 | NUR ---
Nutritional Support Services Note: Pt refused diet copy/education. I explained to him his A1C was elevated at 12.7% and his BG was 162 but he states he doesn't want to follow DM diet. I provided some verbal education/tips he can try to incorporate but he was noncomplient with nutrition intervention. Lukasz [employer] CPD Student
--- NOTE | 2018-08-19 10:30 | NUR ---
RECIEVED AN MESSAGE FROM THAT PT STATES HE IS HOMELESS. WENT TO TALK WITH PT, HE STATES I HAVE PLACES I CAN GO LIVE I JUST NEED TO FIND MY PHONE TO BE ABLE TO GET IN TOUCH WITH THEM. WILL ALSO GIVE HOMELESS GROUP HOME LIST.
[2018-08-19 12:00] VITALS: BP 111/80
--- NOTE | 2018-08-19 13:00 | NUR ---
HOMELESS CUSTODIAL LIST GIVEN TO PT.
--- NOTE | 2018-08-19 13:19 | NUR ---
Slot Host in to talk to patient. Patient states lives at HOME with PT STATES HE GOT KICKED OUT OF WHERE HE WAS LIVING. There are NO steps in the home. Physician: FLACO YOUNG [facility]acy: [facility] Home health services: NONE Patient's level of ADLs: INDEPENDENT Patient has working utilities: YES DME: NONE Follow-up physician's appointment after d/c: WILL BE MADE BY HOSPITALIST NURSE DIRECTOR ON DISCHARGE Does patient want to access PORTAL?: NO Discharge plan PT STATES HE WAS LIVING. STATES HE HAS SOMEWHERE TO GO JUST NEEDS TO FIND HIS CELL PHONE TO CALL OR BE ABLE TO GET ON FACEBOOK TO TALK TO THEM. PT DENIES ANY OTHER NEEDS AT THIS TIME.. FERNY HERNANDEZ
--- NOTE | 2018-08-19 14:12 | NUR ---
DR TOBAR NOTIFIED THAT PT WAS PROVIDED WITH A LIST OF HOMELESS SHELTERS AND THAT HE STATES IF HE HAD ACCESS TO HIS FACEBOOK HE WOULD BE ABLE TO FIND A RIDE.
[2018-08-19 16:00] VITALS: BP 113/80
--- NOTE | 2018-08-19 16:19 | NUR ---
GABI FROM [facility] HERE TO SEE PATIENT AND ASSIST WITH DISCHARGE NEEDS.
--- NOTE | 2018-08-19 17:43 | NUR ---
NURSE FROM [facility] NAMED GABI WAS HERE TO HELP WITH DISCHARGE PLANNING, HOUSING AND TO PROVIDE COMMUNTIY RESOURCES. SHE RECEIVED AND ADDRESS FOR THE PT TO DISCHARGE TO FROM HIM AND SAID THAT SHE WILL ALSO PROVIDE HIM A RIDE BUT THE PT HAS NO MEDS, INSULIN SUPPLIES OR GLUCOMETER. SHE ASKED THAT WE WAIT TO DISCHARGE HIM TOMORROW MORNING SO WE CAN GET HIM THESE THINGS. CALLED DR TOBAR TO NOTIFY HIM.
--- NOTE | 2018-08-19 18:00 | NUR ---
EX-GIRLFRIEND HERE PROVIDING RIDE FOR PT. PT UP TO DESK STATING HE HAS HIS MEDS AND GLUCOMETER. STATES HE THOUGHT THEY THREW HIS MEDS AWAY AND THEY DIDN'T. HE STATED HE WILL GO TO [facility] AND GET THEM FILLED, DR TOBAR NOTIFIED WELL GABI FROM HIS INSURANCE COMPANY.
[2018-08-19] MEDS ORDERED: Humalog SQ (18:34)
[2018-08-19] MEDS ORDERED: Lantus SC (18:34)
--- NOTE | 2018-08-19 18:57 | NUR ---
PT DISCHARGED AT THIS TIME. IV REMOVED AND PRESSURE DRESSING APPLIED. VERBALIZED UNDERSTANDING OF DISCHARGE INSTRUCTIONS.
[2018-10-07] MEDS ORDERED: lantus SC (14:17)
== END 2018-08-19 18:57 | disposition home or self-care (01) | DRG 871 ==
LOC: ED 08:46 → EDHOLD 09:47 → ICCU 09:47 → 5E 09:47 → ICCU 09:53 → 5E 08-18 18:34
PROVIDERS: Emergency Medicine; Internal Medicine; Student in an Organized Health Care Education/Training Program; ADMIT Internal Medicine
DX: A41.9 Sepsis, unspecified organism (principal); E10.10 Type 1 diabetes mellitus with ketoacidosis without coma; J18.9 Pneumonia, unspecified organism; N17.0 Acute kidney failure with tubular necrosis; E87.1 Hypo-osmolality and hyponatremia; E87.5 Hyperkalemia; J06.9 Acute upper respiratory infection, unspecified; J40 Bronchitis, not specified as acute or chronic; R65.20 Severe sepsis without septic shock; F17.210 Nicotine dependence, cigarettes, uncomplicated; F15.10 Other stimulant abuse, uncomplicated; E83.39 Other disorders of phosphorus metabolism; F12.10 Cannabis abuse, uncomplicated; Z91.5 Personal history of self-harm

== ENCOUNTER 2018-10-29 14:55 | Emergency (ER) | payer OTHER ==
[~2018-10-29] VITALS: Ht 187.9 cm; Wt 70.3 kg
[~2018-10-29 14:55] MED LIST changes: +Humalog SQ; +Lantus SC; +lantus SC
[2018-10-29] MEDS ORDERED: ADMELOG100 UNIT/1 SQ (15:25)
[2018-10-29] MEDS ORDERED: [UNRECOGNIZED DRUG - OTHER] MC (15:25)
[2018-10-29] MEDS ORDERED: LANTUS SOL100 UNIT/1 SQ (15:30)
== END 2018-10-29 16:00 | disposition left against medical advice (07) ==
LOC: ED 14:55
DX: E10.9 Type 1 diabetes mellitus without complications (principal); Z76.0 Encounter for issue of repeat prescription; Z79.4 Long term (current) use of insulin

== ENCOUNTER → 2018-11-18 | Outpatient (CLI) | payer OTHER ==
[~2018-11-18] MED LIST changes: +ADMELOG100 UNIT/1 SQ; +DOXYCYCLINE100 M3 PO; +FLAGYL500 MG PO; +LANTUS SOL100 UNIT/1 SQ; +[UNRECOGNIZED DRUG - OTHER] MC
== END | disposition home or self-care (01) ==
LOC: RESCLI 05:01
DX: E10.40 Type 1 diabetes mellitus with diabetic neuropathy, unspecified (principal); R79.89 Other specified abnormal findings of blood chemistry; Z79.899 Other long term (current) drug therapy; Z88.8 Allergy status to other drugs, medicaments and biological substances

== ENCOUNTER 2018-12-07 15:03 | Emergency (ER) | payer OTHER ==
[~2018-12-07] VITALS: Ht 187.9 cm; Wt 72.6 kg
[~2018-12-07 15:03] MED LIST changes: -DOXYCYCLINE100 M3 PO; -FLAGYL500 MG PO
[2018-12-07] MEDS ORDERED: DOXYCYCLINE100 M3 PO (15:41)
[2018-12-07] MEDS ORDERED: FLAGYL500 MG PO (15:41)
[2018-12-07 16:08] LABS: BILIRUBIN NEGATIVE (NEGATIVE); BLOOD NEGATIVE (NEGATIVE); CLARITY CLEAR (CLEAR); COLOR YELLOW (YELLOW); GLUCOSE 3+ (NEGATIVE); KETONE NEGATIVE (NEGATIVE); LEUKO ESTERASE NEGATIVE (NEGATIVE); NITRITE NEGATIVE (NEGATIVE); UROBILINOGEN 0.2 E.U./dl (0.2-1.0)
[2018-12-07 16:15] LABS: BACTERIA 1+
== END 2018-12-07 15:57 | disposition home or self-care (01) ==
LOC: ED 15:03
PROVIDERS: Physician Assistant
DX: Z20.2 Contact with and (suspected) exposure to infections with a predominantly sexual mode of transmission (principal); E11.9 Type 2 diabetes mellitus without complications; F17.200 Nicotine dependence, unspecified, uncomplicated; Z79.4 Long term (current) use of insulin

== ENCOUNTER 2019-04-04 19:56 | Emergency (ER) | payer OTHER ==
[~2019-04-04] VITALS: Wt 72.6 kg
[~2019-04-04 19:56] MED LIST changes: +DOXYCYCLINE100 M3 PO; +FLAGYL500 MG PO
[2019-04-04] MEDS ORDERED: CLINDAMYCIN150 MG PO (20:55)
[2019-04-04] MEDS ORDERED: Motrin,Rufen800 MG PO (20:55)
== END 2019-04-04 21:39 | disposition home or self-care (01) ==
LOC: ED 19:56
DX: K04.01 Reversible pulpitis (principal); E10.9 Type 1 diabetes mellitus without complications; F17.210 Nicotine dependence, cigarettes, uncomplicated; Z79.4 Long term (current) use of insulin

== ENCOUNTER 2019-08-19 14:13 | Emergency (ER) | payer OTHER ==
[~2019-08-19] VITALS: Ht 190.5 cm; Wt 74.8 kg
[~2019-08-19 14:13] MED LIST changes: +CLINDAMYCIN150 MG PO
[2019-08-19 15:17] LABS: BILIRUBIN NEGATIVE (NEGATIVE); BLOOD NEGATIVE (NEGATIVE); CLARITY SL CLOUDY (CLEAR); COLOR YELLOW (YELLOW); GLUCOSE 1+ (NEGATIVE); KETONE NEGATIVE (NEGATIVE); LEUKO ESTERASE NEGATIVE (NEGATIVE); NITRITE NEGATIVE (NEGATIVE); UROBILINOGEN 0.2 E.U./dl (0.2-1.0)
[2019-08-19 15:18] LABS: MUCOUS TRACE
== END 2019-08-19 15:22 | disposition left against medical advice (07) ==
LOC: ED 14:13
PROVIDERS: Emergency Medicine
DX: E11.9 Type 2 diabetes mellitus without complications (principal); F17.200 Nicotine dependence, unspecified, uncomplicated

== ENCOUNTER 2019-09-17 16:05 | Emergency (ER) | payer SELFPAY ==
[~2019-09-17] VITALS: Ht 170.1 cm; Wt 81.6 kg
[2019-09-17 17:01] LABS: BASO # 0.1 10*3/uL (0.0-0.1); BASO % 0.8 % (0.0-1.0); EOS # 0.1 10*3/uL (0.0-0.4); EOS % 1.1 % (1.0-4.0); HEMATOCRIT 44.1 % (42.0-52.0); LYMPH # 2.2 10*3/uL (1.3-4.4); LYMPH % 34.6 % (27.0-41.0); MEAN CELL VOLUME 90.2 fl (80.0-94.0); MEAN CORPUSCULAR HGB 29.4 pg (27.0-31.0); MEAN CORPUSCULAR HGB CONC 32.7 g/dl (33.0-37.0); MEAN PLATELET VOLUME 11.5 fl (9.6-12.3); MONO # 0.4 10*3/uL (0.1-1.0); MONO % 7.1 % (3.0-9.0); NEUT # 3.5 10*3/uL (2.3-7.9); NEUT % 56.2 % (47.0-73.0); PLATELET COUNT AUTOMATED 220 10*3/uL (130-400); RED BLOOD COUNT 4.89 10*6/uL (4.50-5.90); RED CELL DISTRI WIDTH 12.9 % (0-14.5); WHITE BLOOD COUNT 6.2 10*3/uL (4.8-10.8)
[2019-09-17 17:17] LABS: ALBUMIN 3.4 gm/dl (3.1-4.5); ALKALINE PHOSPHATASE 143 U/L (45-117); BUN 13 mg/dl (7-24); CHLORIDE 101 mmol/L (98-107); CREATININE 1.12 mg/dL (0.70-1.30); LIPASE 28 U/L (73-393); POTASSIUM 4.1 mmol/L (3.5-5.1); SGOT/AST 24 IU/L (3-35); SGPT/ALT 28 U/L (12-78); SODIUM 134 mmol/L (136-145); TOTAL PROTEIN 7.1 gm/dL (6.4-8.2)
[2019-09-17 17:58] LABS: VENOUS BLOOD GAS O2 SAT 87.9 % (40-85); VENOUS PH 7.384 (7.32-7.43)
[2019-09-17 18:03] LABS: BILIRUBIN NEGATIVE (NEGATIVE); BLOOD NEGATIVE (NEGATIVE); CLARITY CLEAR (CLEAR); COLOR YELLOW (YELLOW); GLUCOSE 3+ (NEGATIVE); KETONE NEGATIVE (NEGATIVE); LEUKO ESTERASE NEGATIVE (NEGATIVE); NITRITE NEGATIVE (NEGATIVE); RBC 0-2 rbc/hpf (0-2); UROBILINOGEN 0.2 E.U./dl (0.2-1.0); WBC 0-2 wbc/hpf (0-5)
[2019-09-17 18:04] LABS: BACTERIA TRACE
[2019-09-17] MEDS ORDERED: PROTONIX40 MG PO (20:09)
[2019-09-17] MEDS ORDERED: ZOFRAN4 MG PO (20:09)
== END 2019-09-17 20:27 | disposition home or self-care (01) ==
LOC: ED 16:05
PROVIDERS: Physician Assistant
DX: K29.70 Gastritis, unspecified, without bleeding (principal); E11.65 Type 2 diabetes mellitus with hyperglycemia; Z79.899 Other long term (current) drug therapy

== ENCOUNTER 2019-11-04 10:09 | Emergency (ER) | payer OTHER ==
[~2019-11-04] VITALS: Ht 187.9 cm; Wt 72.6 kg
[~2019-11-04 10:09] MED LIST changes: +PROTONIX40 MG PO
== END 2019-11-04 12:11 | disposition home or self-care (01) ==
LOC: ED 10:09
DX: S99.911A Unspecified injury of right ankle, initial encounter (principal); E11.9 Type 2 diabetes mellitus without complications; F17.200 Nicotine dependence, unspecified, uncomplicated; Z79.899 Other long term (current) drug therapy; X58.XXXA Exposure to other specified factors, initial encounter; Y93.89 Activity, other specified; Y92.89 Other specified places as the place of occurrence of the external cause; Y99.8 Other external cause status

== ENCOUNTER 2019-12-06 21:00 | Emergency (ER) | payer OTHER ==
[~2019-12-06] VITALS: Ht 185.4 cm; Wt 80.3 kg
[2019-12-06 21:42] LABS: BASO # 0.1 10*3/uL (0.0-0.1); BASO % 0.7 % (0.0-1.0); EOS % 0.4 % (1.0-4.0); HEMATOCRIT 42.9 % (42.0-52.0); LYMPH % 23.5 % (27.0-41.0); MEAN CELL VOLUME 89.7 fl (80.0-94.0); MEAN CORPUSCULAR HGB 29.7 pg (27.0-31.0); MEAN CORPUSCULAR HGB CONC 33.1 g/dl (33.0-37.0); MEAN PLATELET VOLUME 10.8 fl (9.6-12.3); MONO # 0.7 10*3/uL (0.1-1.0); MONO % 8.5 % (3.0-9.0); NEUT # 5.5 10*3/uL (2.3-7.9); NEUT % 66.5 % (47.0-73.0); PLATELET COUNT AUTOMATED 261 10*3/uL (130-400); RED BLOOD COUNT 4.78 10*6/uL (4.50-5.90); RED CELL DISTRI WIDTH 12.9 % (0-14.5); WHITE BLOOD COUNT 8.3 10*3/uL (4.8-10.8)
[2019-12-06 21:57] LABS: ALBUMIN 3.8 gm/dl (3.1-4.5); ALKALINE PHOSPHATASE 172 U/L (45-117); BUN 17 mg/dl (7-24); CHLORIDE 103 mmol/L (98-107); CREATININE 0.96 mg/dL (0.70-1.30); POTASSIUM 3.9 mmol/L (3.5-5.1); SGOT/AST 21 IU/L (3-35); SGPT/ALT 31 U/L (12-78); SODIUM 136 mmol/L (136-145); TOTAL PROTEIN 7.3 gm/dL (6.4-8.2)
[2019-12-06] MEDS ORDERED: INSULIN LI100 UNIT/2 SQ (22:06)
[2019-12-06] MEDS ORDERED: HUMALOG100 UNIT/1 SQ ×3 (22:09→23:27)
[2019-12-06] MEDS ORDERED: ONETOUCH DELIC1 EAC1 MC ×3 (22:09→23:27)
== END 2019-12-06 23:27 | disposition home or self-care (01) ==
LOC: ED 21:00
PROVIDERS: Physician Assistant
DX: Z76.0 Encounter for issue of repeat prescription (principal); Z79.899 Other long term (current) drug therapy